=== PATIENT | male | born 1960 | race Caucasian/White ===

== ENCOUNTER → 2017-06-29 | Outpatient (CLI) | payer MEDICARE, OTHER ==
--- NOTE | 2017-06-29 09:39 | CT ---
EXAMINATION TYPE: CT chest wo con DATE OF EXAM: 06/29/2017 COMPARISON: 02/10/2016 and 03/04/2012 HISTORY: 57-year-old male Cough and SOB. Pt states he has a nodule on his lung, unsure of which side. Prior on PACS. Scanned by: LS and CS. TECHNIQUE: Contiguous axial scanning of the chest without IV contrast. Coronal and sagittal reconstru ctions performed. CT DLP: 340 mGycm Automated exposure control for dose reduction was used. FINDINGS: The heart is normal size without pericardial effusion. Aorta normal caliber with conventional arch vessel branching anatomy. Scattered nonenlarged mediastinal lymph nodes are demonstrated. Evaluation of the lungs shows left greater than the right biapical pleural parenchymal scarring with some paraseptal and mild centrilobular emphysema. A couple of tiny 3 mm peripheral right upper lobe pulmonary nodules, axial image 21 and 22 unchanged from 2012.. No consolidation or pleural effusion. Tiny hiatal hernia. Visualized upper abdomen otherwise shows no gross abnormality. Bones: Endplate spondylosis lower thoracic spine. No osseous destructive process. IMPRESSION: 1. COPD WITH MILD TO MODERATE EMPHYSEMA. 2. A COUPLE TINY 3 MM RIGHT UPPER LOBE PULMONARY NODULES UNCHANGED FROM 2012 SUGGESTING A BENIGN ETIO LOGY. 3. TINY HIATAL HERNIA.
== END | disposition home or self-care (01) ==
LOC: RADCTMAIN 08:05
PROVIDERS: ATTEND Internal Medicine Pulmonary Disease
DX: J43.9 Emphysema, unspecified (principal); K44.9 Diaphragmatic hernia without obstruction or gangrene; R91.8 Other nonspecific abnormal finding of lung field
CPT/HCPCS: 71250

== ENCOUNTER → 2019-01-17 | Outpatient (CLI) | payer MEDICARE ==
--- NOTE | 2019-01-17 14:16 | CTL ---
EXAMINATION TYPE: CT Low Dose Lung DATE OF EXAM ORDERED: 01/17/2019 HISTORY: Personal history of tobacco use. Lung cancer screening CT DLP: 110.[address] CTDI: 2.7 mGy Automated exposure control for dose reduction was used. SCREENING VISIT: 1 COMPARISON: CT chest 06/29/2017 TECHNIQUE: Low dose computed tomography scan was performed through the chest at 1 mm thick sections a nd reconstructed images in the coronal plane at [address] DIAGNOSTIC QUALITY: Satisfactory FINDINGS: LUNG NODULES: The minimal apical nodularity shows a stable appearance compared to previous exam LUNGS: COPD: Severity: Moderate Fibrosis: Severity: Mild Lymph nodes: Not enlarged Other findings: RIGHT PLEURAL SPACE: Effusion: None Calcification: None Thickening: None Pneumothorax: None LEFT PLEURAL SPACE: Effusion: None Calcification: None Thickening: None Pneumothorax: None HEART: Heart Size: Small Coronary calcification: None Pericardial effusion: None OTHER FINDINGS: Upper abdomen: Unremarkable Bony thorax: Unremarkable Supraclavicular region: No adenopathy Other: IMPRESSION: Benign FOLLOW UP CT CHEST RECOMMENDATION: [address] LUNG RAD: 2
== END | disposition home or self-care (01) ==
LOC: RADCTMAIN 13:03
PROVIDERS: ATTEND Family Medicine
DX: Z12.2 Encounter for screening for malignant neoplasm of respiratory organs (principal); Z87.891 Personal history of nicotine dependence

== ENCOUNTER → 2020-03-19 | Outpatient (CLI) | payer MEDICARE ==
--- NOTE | 2020-03-19 16:58 | CTL ---
EXAMINATION TYPE: CT Low Dose Lung DATE OF EXAM ORDERED: 03/19/2020 HISTORY: Tobacco use. Lung cancer screening CT DLP: 93.[address] CTDI: 2.5 mGy Automated exposure control for dose reduction was used. SCREENING VISIT: Yes COMPARISON: Low-dose lung CT 01/17/2019 TECHNIQUE: Low dose computed tomography scan was performed through the chest at 1 mm thick sections a nd reconstructed images in the coronal plane at [address] DIAGNOSTIC QUALITY: Satisfactory FINDINGS: LUNG NODULES: No suspicious pulmonary nodules. Biapical pleural nodularity unchanged versus 01/17/2019 comparison. LUNGS: COPD: Severity: Moderate Fibrosis: Severity: Mild Lymph nodes: None Other findings: RIGHT PLEURAL SPACE: Effusion: None Calcification: None Thickening: None Pneumothorax: None LEFT PLEURAL SPACE: Effusion: None Calcification: None Thickening: None Pneumothorax: None HEART: Heart Size: Normal Coronary calcification: None Pericardial effusion: None OTHER FINDINGS: Upper abdomen: No adrenal nodule. Bony thorax: Unremarkable Supraclavicular region: Unremarkable Other: IMPRESSION: Benign FOLLOW UP CT CHEST RECOMMENDATION: Annual follow-up screening low-dose lung CT CT LUNG RAD: 2
== END | disposition home or self-care (01) ==
LOC: RADCTMAIN 14:21
PROVIDERS: ATTEND Family Medicine
DX: Z12.2 Encounter for screening for malignant neoplasm of respiratory organs (principal); F17.210 Nicotine dependence, cigarettes, uncomplicated

== ENCOUNTER → 2021-03-17 | Outpatient (CLI) | payer MEDICARE ==
--- NOTE | 2021-03-17 09:09 | CTL ---
EXAMINATION TYPE: CT Low Dose Lung DATE OF EXAM ORDERED: 03/17/2021 COMPARISON: 03/19/2020 HISTORY: . Low Dose CT Lung Screening CT DLP: 88.[address] CTDI: 2.30 mGy IV CONTRAST USED: None. SCREENING VISIT: First visit COMPARISON: None. TECHNIQUE: Low dose computed tomography scan was performed through the chest at 1 millimeter thick se ctions and reconstructed images in the coronal plane at [address] DIAGNOSTIC QUALITY: Satisfactory FINDINGS: LUNG NODULES: Biapical scarring with nodularity is stable relative to the prior study. LUNGS: COPD: Severity: Moderate Fibrosis: Severity: Mild Lymph nodes: None Other findings: None RIGHT PLEURAL SPACE: Effusion: None Calcification: None Thickening: None Pneumothorax: None LEFT PLEURAL SPACE: Effusion: None Calcification: None Thickening: None Pneumothorax: None HEART: Heart Size: Mildly enlarged Coronary calcification: Mild Pericardial effusion: None OTHER FINDINGS: Upper abdomen: No significant abnormality Bony thorax: Degenerative changes Supraclavicular region: No significant abnormalityOther: No significant abnormalityI IMPRESSION: Stable biapical scarring with nodularity. No new Nodules seen. FOLLOW UP CT CHEST RECOMMENDATION: Follow-up screening in one year CT LUNG RAD: LUNG RAD CATEGORY 2 benign
== END | disposition home or self-care (01) ==
LOC: RADCTMAIN 08:23
PROVIDERS: ATTEND Family Medicine
DX: J98.4 Other disorders of lung (principal)
CPT/HCPCS: 71271

== ENCOUNTER → 2022-04-13 | Outpatient (CLI) | payer MEDICARE ==
--- NOTE | 2022-04-13 07:47 | CT ---
EXAMINATION TYPE: CT chest wo con CT DLP: 250.30 mGycm, Automated exposure control for dose reduction was used. DATE OF EXAM: 04/13/2022 7:30 AM COMPARISON: CT low-dose lung cancer screening 03/17/2021. CLINICAL INDICATION:Male, 62 years old with history of J45.50 Severe persistent asthma, uncomplicated; PHH, asthma TECHNIQUE: Multiple axial images were obtained through the chest without IV contrast. Lack of IV or o ral contrast limits evaluation of solid and hollow organ viscera. FINDINGS: LUNGS/ PLEURA: No pneumothorax, pleural effusion, or focal consolidation. Moderate centrilobular and paraseptal emphysematous changes . Biapical scarring with nodularity redemonstrated. No suspicious pu lmonary nodules or masses. AIRWAY: Patent and unremarkable. HEART: Size within normal limits. No pericardial effusion. Minimal coronary arterial calcifications. MEDIASTINUM: No gross evidence of adenopathy. VASCULATURE: No aortic aneurysm. Scattered atherosclerotic calcification of the aorta. MUSCULOSKELETAL: No acute osseous abnormalities SOFT TISSUES/LYMPH NODES: Unremarkable. LOWER NECK: No significant findings. UPPER ABDOMEN: Small hiatal hernia. IMPRESSION: 1. No acute thoracic process. 2. Moderate emphysematous changes.
== END | disposition home or self-care (01) ==
LOC: RADCTMAIN 06:43
PROVIDERS: ATTEND Internal Medicine Pulmonary Disease
DX: J43.9 Emphysema, unspecified (principal); Z72.0 Tobacco use
CPT/HCPCS: 71250

== ENCOUNTER → 2023-12-08 | Outpatient (CLI) | payer MEDICARE ==
--- NOTE | 2023-12-08 17:43 | CT ---
EXAMINATION TYPE: CT chest wo con CT DLP: 297.80 mGycm, Automated exposure control for dose reduction was used. DATE OF EXAM: 12/08/2023 6:58 AM COMPARISON: Chest 04/13/2022.. CLINICAL INDICATION:Male, 63 years old with history of J44.9 COPD R91.1 SOLITARY PULMONARY NODULE; JORGE Loving Dr. heard wheezing during recent exam. Hx COPD, lung nodule TECHNIQUE: Multiple axial images were obtained through the chest. Sagittal and coronal reformats were created for review. Contrast used: mL of (None if empty) Oral contrast used: (None if empty) FINDINGS: LUNGS/ PLEURA: Mild centrilobular and paraseptal emphysema changes of the lungs. No new or enlarging pulmonary nodule. Left lower lung superior segment 4 mm pulmonary nodule is unchanged from prior. AIRWAY: Patent and unremarkable. HEART: Size within normal limits. MEDIASTINUM: No gross evidence of adenopathy. VASCULATURE: Atherosclerotic calcifications are present throughout the aorta and its branches. MUSCULOSKELETAL: No acute osseous abnormalities SOFT TISSUES/LYMPH NODES: Unremarkable. LOWER NECK: No significant findings. UPPER ABDOMEN: No significant findings. IMPRESSION: Mild emphysema changes. No evidence for acute process. No new or enlarging pulmonary nodule. Stable l eft lower lobe superior segment pulmonary nodule.
== END | disposition home or self-care (01) ==
LOC: RADCTMAIN 06:39
PROVIDERS: ATTEND Internal Medicine Pulmonary Disease
DX: J43.2 Centrilobular emphysema (principal); J44.9 Chronic obstructive pulmonary disease, unspecified; J45.50 Severe persistent asthma, uncomplicated; R91.1 Solitary pulmonary nodule; Z72.0 Tobacco use
CPT/HCPCS: 71250

== ENCOUNTER → 2024-10-18 | Outpatient (CLI) | payer MEDICARE ==
--- NOTE | 2024-10-18 07:39 | US ---
EXAMINATION TYPE: US Aorta Screening DATE OF EXAM: 10/18/2024 COMPARISON: NONE CLINICAL INDICATION: Male, 64 years old with history of Z13.6 ENCOUNTER FOR SCREENING FOR CARDIOVASCU LAR D; TECHNIQUE: Multiple sonographic images of the abdominal aorta are obtained with grayscale and color D oppler imaging. FINDINGS: EXAM MEASUREMENTS: Abdominal Aorta: Proximal: 2.5x1.9cm Mid: 1.9x1.9cm Distal: 2.3x2.3cm Bifurcation: Right Iliac: 1.0x1.3cm Left Iliac: 0.9x1.3cm FRONT ATTENDANT NOTES: slightly limited exam due to gas/overlying bowel IMPRESSION: No evidence for aortic aneurysm. [facility], , 10/18/2024 7:37 AM
== END | disposition home or self-care (01) ==
LOC: RADUSWWP 06:42
PROVIDERS: ATTEND Family Medicine
DX: Z13.6 Encounter for screening for cardiovascular disorders (principal)
CPT/HCPCS: 76706

== ENCOUNTER → 2024-12-15 | Outpatient (CLI) | payer MEDICARE ==
--- NOTE | 2024-12-15 10:38 | CT ---
EXAMINATION TYPE: CT chest wo con DATE OF EXAM: 12/15/2024 9:44 AM COMPARISON: 12/08/2023 CLINICAL INDICATION: Male, 64 years old with history of R91.1 pulmonary lesion; PHH, PULMONARY LESION . TECHNIQUE: Multiple axial images were obtained through the chest. Sagittal and coronal reformats were created for review. MIP was performed on a separate workstation. Contrast used: mL of (None if empty) Oral contrast used: (None if empty) CT DLP: 315.0 mGycm, Automated exposure control for dose reduction was used. FINDINGS: LUNGS/ PLEURA: * Mild centrilobular and paraseptal emphysema changes of the lungs. * No new or enlarging pulmonary nodule. * Left lower lung superior segment 4 mm pulmonary nodule is unchanged from prior. Series 3 image 25 AIRWAY: Patent and unremarkable. HEART: Size within normal limits. Mild/minimal coronary artery cusp patient's. MEDIASTINUM: No gross evidence of adenopathy. VASCULATURE: Atherosclerotic calcifications are present throughout the aorta and its branches. MUSCULOSKELETAL: Mild disc degeneration changes are present throughout the thoracolumbar spine. SOFT TISSUES/LYMPH NODES: Unremarkable. LOWER NECK: No significant findings. UPPER ABDOMEN: No significant findings. IMPRESSION: 1. No evidence for acute process. 2. Mild emphysema changes. 3. No new or enlarging pulmonary nodule. Stable left lower lobe superior segment pulmonary nodule. Follow up recommendations for incidental pulmonary nodules, if there are any, are per [employer] [place] [employer] [employer] or [employer]. [email or web address] [facility], , 12/15/2024 10:35 AM
== END | disposition home or self-care (01) ==
LOC: RADCTMAIN 09:19
PROVIDERS: ATTEND Internal Medicine Pulmonary Disease
DX: R91.1 Solitary pulmonary nodule (principal); J43.9 Emphysema, unspecified
CPT/HCPCS: 71250